=== PATIENT | female | born 1950 | race American Indian/Alaskan Native ===

== ENCOUNTER 2017-01-31 17:28 | Inpatient (IN) | payer MEDICARE, MEDICAID ==
[2017-01-31 17:28] VITALS: BMI 31.6
[2017-01-31 18:40] LABS: BASO # 0.1 K/uL (0.0-0.2); BASO % 0.8 % (0.0-2.0); EOS # 0.1 K/uL (0.0-0.7); EOS % 0.8 % (0.0-4.0); HEMATOCRIT 37.7 % (34.0-47.0); LYMPH # 2.4 K/uL (1.0-4.3); LYMPH % 35.3 % (20.0-40.0); MEAN CELL VOLUME 93.6 fL (81.0-99.0); MEAN CORPUSCULAR HEMOGLOBIN 31.9 pg (27.0-31.0); MEAN CORPUSCULAR HGB CONC 34.1 g/dL (33.0-37.0); MEAN PLATELET VOLUME 7.8 fL (7.2-11.7); MONO # 0.4 K/uL (0.0-0.8); MONO % 5.8 % (0.0-10.0); RED CELL DISTRIBUTION WIDTH 12.5 % (11.5-14.5); WHITE BLOOD COUNT 6.7 K/uL (4.8-10.8)
[2017-01-31 19:07] LABS: CHLORIDE 102 mmol/L (98-107)
[2017-01-31 19:08] LABS: SODIUM 138 mmol/L (132-148)
[2017-01-31 19:09] LABS: POTASSIUM 3.6 mmol/L (3.6-5.2)
[2017-01-31 19:11] LABS: ALB/GLOB RATIO 1.1 (1.0-2.1); ALKALINE PHOSPHATASE 70 U/L (38-126); ALT/SGPT 44 U/L (9-52); AST/SGOT 31 U/L (14-36); BILIRUBIN,TOTAL 0.5 mg/dL (0.2-1.3); BLOOD UREA NITROGEN 9 mg/dL (7-17); CARBON DIOXIDE 26 mmol/L (22-30); GFR AFRICAN-AMERICAN > 60; GLUCOSE,RANDOM 83 mg/dL (65-105); TOTAL PROTEIN 7.8 g/dL (6.3-8.3)
[2017-01-31 19:12] LABS: ALCOHOL SERUM < 10 mg/dl (0-10); CALCIUM 9.3 mg/dl (8.6-10.4)
[2017-01-31 19:26] LABS: RBC URINE 3 /hpf (0-3); URINE BILIRUBIN NEGATIVE (NEGATIVE); URINE BLOOD NEGATIVE (NEGATIVE); URINE COLOR Yellow (YELLOW); URINE GLUCOSE (UA) NORMAL (Normal); URINE KETONE NEGATIVE (NEGATIVE); URINE LEUKOCYTE ESTERASE 3+ Leu/uL (Negative); URINE PROTEIN NEGATIVE (NEGATIVE); URINE UROBILINOGEN NORMAL mg/dL (0.2-1.0); WBC URINE 64 /hpf (0-5)
--- NOTE | 2017-01-31 20:09 | C.PDOC ---
History Of Present Illness 66 y/o female presents to ED requesting detox from Heroin. Patient states last used earlier today and normally uses 1 bundle daily. No physical complaints at this time. Time Seen by Provider: 01/31/17 17:57 Chief Complaint (Nursing): Psychiatric Evaluation History Per: Patient History/Exam Limitations: no limitations Onset/Duration Of Symptoms: Days Current Symptoms Are (Timing): Still Present Suicide/Self Injury Attempted (Context): None Past Medical History Reviewed: Historical Data, Nursing Documentation, Vital Signs Vital Signs: Last Vital Signs Temp 98 F 01/31/17 20:25 Pulse 63 01/31/17 20:25 Resp 18 01/31/17 20:25 BP 106/71 01/31/17 20:25 Pulse Ox 100 01/31/17 20:25 - Medical History PMH: Arthritis, Asthma, HTN, Kidney Stones, Chronic Kidney Disease - [facility] Procedures DETOXIFICATION SERVICES FOR SUBSTANCE ABUSE TREATMENT (11/11/15) DRUG DETOXIFICATION (05/07/14) OTHER LOCAL DESTRUC SKIN (01/08/13) Family History: States: Unknown Family Hx - Social History Hx Tobacco Use: Yes Hx Alcohol Use: No Hx Substance Use: Yes (clean since 2009) - Immunization History Hx Influenza Vaccination: No Hx Pneumococcal Vaccination: No Review Of Systems Except As Marked, All Systems Reviewed And Found Negative. Constitutional: Negative for: Fever, Chills Cardiovascular: Negative for: Chest Pain Respiratory: Negative for: Shortness of Breath Gastrointestinal: Negative for: Nausea, Vomiting, Diarrhea Skin: Negative for: Rash Neurological: Negative for: Weakness, Numbness Physical Exam - Physical Exam Appears: Non-toxic, No Acute Distress Skin: Normal Color, Warm, No Rash Head: Atraumatic, Normacephalic Eye(s): bilateral: Normal Inspection, EOMI Oral Mucosa: Moist Neck: Normal ROM, Supple Chest: Symmetrical Cardiovascular: Rhythm Regular Respiratory: Normal Breath Sounds, No Rales, No Rhonchi, No Wheezing Gastrointestinal/Abdominal: Soft, No Tenderness, No Guarding, No Rebound Extremity: Normal ROM, Capillary Refill (<2 seconds) Neurological/Psych: Oriented x3, Normal Speech, Normal Cognition ED Course And Treatment - Laboratory Results Result Diagrams: 01/31/17 18:36 01/31/17 18:36 O2 Sat by Pulse Oximetry: 98 (RA) Pulse Ox Interpretation: Normal Disposition - Disposition Disposition: HOSPITALIZED Disposition Time: 19:40 Condition: STABLE - Clinical Impression Clinical Impression: Drug dependence - Scribe Statement The provider has reviewed the documentation as recorded by the Rejiibevelyn Beard All medical record entries made by the Rejiibe were at my direction and personally dictated by me. I have reviewed the chart and agree that the record accurately reflects my personal performance of the history, physical exam, medical decision making, and the department course for this patient. I have also personally directed, reviewed, and agree with the discharge instructions and disposition.
--- NOTE | 2017-01-31 20:54 | PCM.BM ---
<Shital Mercado - Last Filed: 01/31/17 20:51> Treatment Plan Problems - Problems identified on initial assessmt potiential for opiate withdrawal Date Initiated: 01/31/17 Time Initiated: 20:52 Assessment reference: NA Status: Active Treatment assets and liabiliti Patient Assests: motivated, ADL independent, cognitively intact Patient Liabilities: substance abuse - Milieu Protocol Maintain good personal hygiene: daily Encourage regular showers, daily Remind patient to perform daily oral care, daily Assist patient to perform ADL's Maintain personal safety: every shift Educate patient to report safety concerns to staff, every shift Monitor environment for contraband/sharps Medication safety: Monitor for expected outcome, potential side effects: every shift, Assess barriers to learning: every shift, Assess readiness for medication education: every shift <Guero Yi - Last Filed: 02/01/17 12:51> - Diagnosis (1) Opioid use disorder, severe, dependence Status: Acute Interventions: 02/01/17 12:52 * Assess 7x/week regarding severity of withdrawal * Educate regarding risks, benefits, side effects and alternatives of medications * Use Motivational Interviewing for abstinence * Use CBT for relapse prevention * Medication management for withdrawal symptoms * Encourage medication assisted treatment * <Shannan Cooney - Last Filed: 02/02/17 08:25> Family Contact Family involvement: Nichol/SO not involved Family contact: Patient declines to allow family contact at present - Goals for Treatment Patient goals for treatment: Transition from detox to Suboxone maintenance. Discharge/Continuing Care - Education Needs Education Needs: Patient Medication, Patient Diagnosis/Disease Process, Patient Coping Skills, Patient Anger Management skills, Patient Placement options, Patient Community resources - Discharge Discharge Criteria: No longer exhibiting s/s of withdrawal, Reduction of target symptoms Discharge to:: Home - Treatment Team Participation Patient/Family/SO Statement: 02/02/17 08:24 "I'll be ok with Suboxone. That'll keep me safe". Discussed with Family/SO: No Was Patient/Family/SO present at Treatment Team Meeting: Yes
[2017-01-31] MEDS ORDERED: Albuterol HFA 90 mcg/actuation (8 g) INH PRN (22:34)
[2017-01-31] MEDS ORDERED: Aluminum Hydroxide/Magnesium Hydroxide Susp (30 mL) PO PRN (22:42)
[2017-02-01] MEDS ORDERED: Buprenorphine Hydrochloride 2 mg SL ONE ×3 (05:22→16:15)
--- NOTE | 2017-02-01 11:20 | PCM.PSYCH ---
Addendum entered and electronically signed by Nilda Duff 02/01/17 11:34 : - DSM 5 DSM 5 Diagnosis: Heroin withdrawal Heroin use d/o - severe anxiety d/o, unspecified tobacco use d/o - moderate - Recommended/Plan of Treatment Treatment Recommendations and Plan of Treatment: Subutex taper Atarax 25 mg po PRN Seroquel 25mg po HS Trazodone 100mg PO HS HTN: Norvasc 10 mg PO daily As needed meds and vitamins Attend groups and activities MT for abstinence and CBT for relapse prevention Support and psychoeducation Consider and encourage MAT Refer to after care 33 min Projected ELOS: 5 days Prognosis: fair Discharge Plan and Discharge Criteria: as per SW Original Note: Initial Psychiatric Evaluation - Initial Psychiatric Evaluation Type of Admission: Voluntary Legal Status: Capacity Chief Complaint (in patient's own words): "I want detox from heroin" Patient's Reaction to Hospitalization: cooperative History of Present Illness and Precipitating Events: The patient was seen, the chart was reviewed and the case was discussed with staff and attending. Patient is a 66 year old female who presented to [facility] for heroin detox. Patient states that she has been using 10-12 bags of heroin per day for the past year. This is the most amount of heroin the patient has used. Previously, patient used a few bags of heroin per day for many years. Patient's longest period of sobriety was 2 months in 2009 after a detox program. Patient denies any other drugs or alcohol use. Patient smokes about 3 cigarettes per day for many years. Patient has been to detox twice in the past. Patient has never been to rehab. Psych Hx: None PMH: Hypertension diagnosed 2 months ago, right mastectomy in 2004 PMD: Dr. Joey Durán hx: in 2005, lives at home with daughter and grandson, has 3 children, ages: 39, 37, 25 heroin: 10-12 bags/ day for 1 year, denies alcohol/ other drugs, tobacco: 3 cigarettes per day Current Medications: Active Medications Generic Name Dose Route Start Last Admin Trade Name Freq PRN Reason Stop Dose Admin Al Hydrox/Mg Hydrox/Simethicone 30 ml 01/31/17 22:42 Maalox 30 Ml PO TID PRN Indigestion / Heartburn Albuterol 1 puff 01/31/17 22:34 Ventolin Hfa 90 Mcg/Actuation (8 G) INH RQ4 PRN SOB Amlodipine Besylate 10 mg 02/01/17 10:00 02/01/17 10:47 Norvasc PO 10 mg DAILY JENNY Administration Hydroxyzine HCl 25 mg 01/31/17 22:34 01/31/17 22:57 Atarax PO 25 mg Q4H PRN Administration Anxiety Ibuprofen 400 mg 01/31/17 22:34 Motrin Tab PO Q6H PRN Pain, moderate (4-7) Loperamide HCl 2 mg 01/31/17 22:42 Imodium PO Q8 PRN Diarrhea Ondansetron HCl 4 mg 01/31/17 22:42 Zofran Tab PO Q8 PRN Nausea/Vomiting Quetiapine Fumarate 25 mg 02/01/17 22:00 Seroquel PO HS JENNY Trazodone HCl 100 mg 02/01/17 09:45 Desyrel PO HS PRN insomnia Past Psychiatric History - Past Psychiatric History Previous Treatment History: None History of ETOH/Drug Use: history of heroin 10-12 bags per day for 1 year previously about 3 bags per day for many years tobacco: 3 cigarettes per day Pertinent Medical Hx (Current Medical&Sleep Prob, Allergies): PMHx: Hypertension, right mastectomy in 2004 Allergies Allergy/AdvReac Type Severity Reaction Status Date / Time No Known Allergies Allergy Verified 01/31/17 17:35 Meloxicam [Mobic] 15 mg PO DAILY PRN #14 tab 12/16/14 Albuterol HFA [Ventolin HFA 90 mcg/actuation (8 g)] 1 puff INH RQ4 PRN #0 inhaler 11/14/15 amLODIPine [Norvasc] 10 mg PO DAILY 01/31/17 Review of Systems - Neurological Neurological: absent: Confusion, Dizziness, Memory Loss - Psychiatric Psychiatric: Anxiety. absent: Depression, Homicidal Ideation, Paranoia, Suicidal Ideation Mental Status Examination - Personal Presentation Personal Presentation: Looks stated age - Affect Affect: Broad - Motor Activity Motor Activity: Calm - Reliability in Providing Information Reliability in Providing Information: Good - Speech Speech: Organized - Mood Mood: Neutral - Formal Thought Process Formal Thought Process: No Impairment - Obsessions/Compulsions Obsessions: No Compulsions: No - Cognitive Functions Orientation: Person, Place, Situation, Time Sensorium: Alert Attention/Concentration: Attentive Abstract Thinking: Emerson Estimate of Intelligence: Average Judgement: Intact, as evidence by: Insight regarding need for hospitalization - Risk Risk: Falls - Strength & Assets Inventory Strength & Assets Inventory: Family support, Cooperative
[2017-02-02] MEDS: Buprenorphine Hydrochloride 2 mg SL SCH (10:34)
--- NOTE | 2017-02-02 13:50 | PCM.PYCHPN ---
Psychiatric Progress Note - Psychiatric Progress Note Patient seen today, length of contact: 15 min Patient Chief Complaint: I have withdrawal symptoms.' Problems Identified/Issues Discussed: Patient seen and evaluated, chart reviewed and discussed with the nurse. Patient reports irritability, anxiety and reports withdrawal symptoms including nausea, diarrhoea, cramps, sweating, joint pains and headaches. Patient reports irritable mood but denies any suicidal ideation or homicidal ideation. She denies any auditory or visual hallucinations. She started tolerating the withdrawal medications and denies any side effects. Supportive therapy and psychoeducation were given. Medication Change: Yes (detox meds ) Medical Record Reviewed: Yes Mental Status Examination - Cognitive Function Orientation: Person, Place, Situation, Time Memory: Intact Attention: WNL Concentration: Poor Association: WNL Fund of Knowledge: Poor - Mood Mood: Neutral - Affect Affect: Broad - Speech Speech: Soft - Formal Thought Process Formal Thought Process: No Impairment - Suicidal Ideation Suicidal Ideation: No - Homicidal Ideation Homicidal Ideation: No Goal/Treatment Plan - Goal/Treatment Plan Need for Continued Stay: Discharge may exacerbated symptoms, Severe functional impairment Progress Toward Problem(s) and Goals/Treatment Plan: Heroin withdrawal Heroin use d/o - severe anxiety d/o, unspecified tobacco use d/o - moderate Subutex taper Atarax 25 mg po PRN Seroquel 25mg po HS Trazodone 100mg PO HS HTN: Norvasc 10 mg PO daily As needed meds and vitamins Attend groups and activities [place] for abstinence and CBT for relapse prevention Support and psychoeducation Consider and encourage MAT Refer to after care - Smoking Cessation Smoking Cessation Initiated: No
[2017-02-03] MEDS: Buprenorphine Hydrochloride 2 mg SL SCH (10:11)
--- NOTE | 2017-02-03 17:40 | PCM.PYCHPN ---
Psychiatric Progress Note - Psychiatric Progress Note Patient seen today, length of contact: 15 min Patient Chief Complaint: I'm feeling much better Problems Identified/Issues Discussed: Patient seen. Chart reviewed. Case discussed with the staff. Issues related to illness and treatment were discussed with the patient. Reported compliant with treatment with no adverse affects. Tolerating treatment very well. At the time of evaluation, patient was awake alert oriented 3, had no delusions, no auditory or visual hallucinations, no suicidal ideations or homicidal ideations. Medical Problems: Hypertension Diagnostic Results: Reviewed DSM 5 Symptoms Update: Improving with treatment Medication Change: No Medical Record Reviewed: Yes Mental Status Examination - Cognitive Function Orientation: Person, Place, Situation, Time Memory: Intact Attention: WNL Concentration: WNL Association: WN Fund of Knowledge: [facility] Decription of patient's judgement and insights: Fair - Mood Mood: Neutral - Affect Affect: Other (Appropriate) - Speech Speech: Appropriate - Formal Thought Process Formal Thought Process: No Impairment - Suicidal Ideation Suicidal Ideation: No - Homicidal Ideation Homicidal Ideation: No Goal/Treatment Plan - Goal/Treatment Plan Need for Continued Stay: Remain at risks for inpatient hospitalization, Discharge may exacerbated symptoms, Severe functional impairment Progress Toward Problem(s) and Goals/Treatment Plan: Patient education Supportive therapy Continue treatment as before [facility] after discharge from the hospital. Estimated Date of D/C: 02/04/17 - Smoking Cessation Smoking Cessation Initiated: Yes
[2017-02-04] MEDS: Buprenorphine Hydrochloride 2 mg SL SCH (09:42)
[2017-02-04 10:16] VITALS: BP 123/67; PULSE 110; RESP 20; TEMP 98.5; O2SAT 98
--- NOTE | 2017-02-04 15:28 | PCM.PYCHDC ---
Mental Status Examination - Mental Status Examination Orientation: Person, Place, Situation, Time Memory: Intact Mood: Neutral Affect: Other (Appropriate) Speech: Appropriate Attention: WNL Concentration: WNL Association: WNL Fund of Knowledge: WNL Formal Thought Process: No Impairment Description of patient's judgement and insight: Fair Psychotic Thoughts and Behaviors: None Suicidal Ideation: No Current Homicidal Ideation?: No Discharge Summary - Discharge Note Reason for Hospitalization: Opiate use disorder Laboratory Data: Reviewed Consultations:: List each consultation separately and include: 1. Reason for request. 2. Findings. 3. Follow-up Summary of Hospital Course include:: 1. Description of specific treatment plan utilized for patients during their course of treatmen. 2. Summarize the time- course for resolution of acute symptoms and/or regressed behaviors. 3. Describe issues identified and worked on during hospitalization. 4. Describe medication utilized. 5. Describe medical problems identified and treated. 6. Reassessment of suicide risk Summary of Hospital Course: Patient was admitted for the treatment of from withdrawing from heroine. Patient was started on Subutex and other when necessary medications. Patient tolerated treatment very well without any adverse affects. Today patient was stable and ready for discharge. Time of evaluation and discharge, patient was awake alert oriented 3, had no delusions, no auditory or visual hallucinations , no suicidal ideations or homicidal ideations. Patient was discharged in a stable condition. [facility] follow[facility]. - Final Diagnosis (DSM 5) Condition upon Discharge: STABLE Disposition: HOME/ ROUTINE Follow-up Treatment Plan: Patient wants to go to [facility] for follow-up care after discharge from the hospital. Prescriptions/Medication Reconciliation: traZODone [Desyrel] 100 mg PO DAILY #30 tab - Smoking Cessation Smoking Cessation Medication prescribed: Yes - Antipsychotic Medications Pt discharged on 2 or more routine antipsychotic medications: No
== END 2017-02-04 11:20 | disposition home or self-care (01) | DRG 895 ==
LOC: C.ER 17:28 → C.7D 19:56
PROVIDERS: ADMIT Psychiatry & Neurology Psychiatry; ATTEND Psychiatry & Neurology Psychiatry
PROC: HZ2ZZZZ Detoxification Services for Substance Abuse Treatment (ICD-10-PCS; principal; 2017-01-31)
PROC: HZ52ZZZ Individual Psychotherapy for Substance Abuse Treatment, Cognitive-Behavioral (ICD-10-PCS; 2017-01-31)
PROC: HZ42ZZZ Group Counseling for Substance Abuse Treatment, Cognitive-Behavioral (ICD-10-PCS; 2017-01-31)
PROC: HZ59ZZZ Individual Psychotherapy for Substance Abuse Treatment, Supportive (ICD-10-PCS; 2017-01-31)
PROC: HZ56ZZZ Individual Psychotherapy for Substance Abuse Treatment, Psychoeducation (ICD-10-PCS; 2017-01-31)
PROC: HZ46ZZZ Group Counseling for Substance Abuse Treatment, Psychoeducation (ICD-10-PCS; 2017-01-31)
DX: F11.23 Opioid dependence with withdrawal (principal); I10 Essential (primary) hypertension; F41.9 Anxiety disorder, unspecified; F17.210 Nicotine dependence, cigarettes, uncomplicated